=== PATIENT | male | born 1965 | race African-American/Black ===

== ENCOUNTER 2020-12-14 23:24 | Inpatient (IN) | payer OTHER, SELFPAY ==
--- NOTE | ~2020-12-14 | US_ITS ---
US abdomen complete EXAMINATION: US Abdomen Complete INDICATION: Cholecystitis. PROCEDURE: Realtime High Resolution abdomen ultrasound. COMPARISON: MRCP dated 12/15/2020 FINDINGS: Gallbladder contains sludge. No definite gallstones. Common bile duct measures 5 mm. Liver echotexture is diffusely heterogeneous with nodular surface, compatible with cirrhosis.. Pancre as is not well visualized due to bowel gas. Spleen is unremarkeable. Renal echotexture is within norm al limits bilaterally without hydronephrosis, contour deforming mass or renal stone. Right kidney ivy sures 10.9 cm. Left kidney measures 11.9 cm. Visualized aspects of the aorta and IVC are within normal limits. Portal vein is patent. No sonograph ic Roque's sign indicated by the technologist. Right pleural effusion. IMPRESSION: 1: Gallbladder sludge. 2: Cirrhosis of the liver. 3: Right pleural effusion. Reviewed, dictated and finalized at location A.
--- NOTE | ~2020-12-14 | MR_ITS ---
EXAMINATION: MR MRCP wo/w con/w 3D wo ind DATE: 12/15/2020 13:21 INDICATION: Acute pancreatitis. Abnormal liver function tests. Right upper quadrant abdominal pain. N ausea and vomiting. TECHNIQUE: Magnetic resonance imaging (MRI) of the abdomen was performed without and with 20 mL Multi Pratik intravenous contrast. Sequences included coronal T2-weighted FS FSE, coronal T2-weighted FSE, a xial T1-weighted LAVA, coronal FS FIESTA, axial dual-echo T1-weighted SPGR, coronal lava-FLEX, sagitt al T2-weighted FSE, axial T2-weighted FSE, and axial DWI. Thick-slab T2-weighted FSE images were obta ined for magnetic resonance cholangiopancreatography (MRCP). Maximum intensity projection 3-D reconst ructions of the volumetric data were created by the technologist. Postcontrast sequences included cor onal LAVA-flex and time course of axial T1-weighted LAVA. COMPARISON: None. FINDINGS: ABDOMEN MRI: There are small pleural effusions, right worse than left. There are mild dependent airsp marlo opacities bilaterally, likely atelectasis. Partially visualized is right-sided gynecomastia. The liver is small with nodular surface contour, consistent with cirrhosis. There is sludge and at least one stone in the gallbladder, which is distended. There is mild splenomegaly. Paraesophageal varices are noted. There is a paraumbilical portacaval shunt. There is edema of the intra-abdominal fat inclu ding around the pancreas. The pancreas enhances throughout. The adrenal glands are normal. There are cysts in the kidneys measuring up to 7 mm on the right. There are no dilated loops of bowel. There is a small volume of ascites. There is mild periportal and aortocaval lymphadenopathy, likely reactive. ABDOMEN MRCP: The common duct is normal and measures 5 mm. No choledocholithiasis. IMPRESSION: 1. Cirrhosis of the liver with portal venous hypertension. 2. Small pleural effusions, right worse than left. 3. Distended gallbladder with stone and sludge. Gallbladder distention may be secondary to fasting or acute cholecystitis. 4. Normal common duct. No choledocholithiasis. 5. Small volume of ascites. 6. Edema of the intra-abdominal fat including around the pancreas. These findings may be secondary to generalized edema and/or acute interstitial pancreatitis. Correlate with lipase. 7. Mild abdominal lymphadenopathy, likely reactive. Reviewed, dictated and finalized at location A. IMPRESSION: 1. Cirrhosis of the liver with portal venous hypertension. 2. Small pleural effusions, right worse than left. 3. Distended gallbladder with stone and sludge. Gallbladder distention may be s econdary to fasting or acute cholecystitis. 4. Normal common duct. No choledocholithiasis. 5. Small volume of ascites. 6. Edema of the intra-abdominal fat including around the pancreas. These findin gs may be secondary to generalized edema and/or acute interstitial pancreatitis . Correlate with lipase. 7. Mild abdominal lymphadenopathy, likely reactive.
--- NOTE | ~2020-12-14 | XR_ITS ---
EXAMINATION: XR chest 2V DATE: 12/15/2020 13:24 INDICATION: Pleural effusion. TECHNIQUE: Frontal and lateral views of the chest were obtained. COMPARISON: MRCP 12/15/2020 FINDINGS: There is a diffuse interstitial pattern in the lungs, consistent with mild pulmonary edema. There are small pleural effusions. No pneumothorax. The heart size is normal. IMPRESSION: 1. Mild pulmonary edema. 2. Small pleural effusions. Reviewed, dictated and finalized at location A.
--- NOTE | 2020-12-14 22:32 | ADMGEN ---
This patient, Peter Roy, was admitted to Medical Room 348-. Patient/family oriented to hospital policies and general routines including ID bracelet, bed and alarms, visiting hours, pain management, procedures, bathroom and other care routines, personal items, smoking policy, room service/diet, and visiting hours. Information on how to activate the Rapid Response Team has been discussed. Patient/Family are encouraged to report perceived risks to care and to ask questions if they do not understand what they are told or what they should do.
[2020-12-14 22:52] VITALS: BP 134/68; PULSE 107; RESP 18; TEMP 37.1; O2SAT 96; BMI 33.7
[2020-12-14 23:00] LABS: Glucose Point of Care 146 mg/dl (65-105)
[2020-12-15] MEDS: DEXTROSE 5%/LACTATED RINGERS 1,000 ML 100 ML IV CONT (04:49)
[2020-12-15 05:24] VITALS: BP 108/60; PULSE 94; RESP 18; TEMP 36.4; O2SAT 95
[2020-12-15 05:56] LABS: Add Urine Microscopic? YES; Appearance Urine Clear (Clear); Bacteria Urine Trace /hpf; Bilirubin Urine 1+ (Negative); Blood Urine 1+ (Negative); Color Urine Amber (Yellow); Glucose Urine UA Negative (Negative); Ketones Urine Negative (Negative); Leukocyte Esterase Ur Negative LEU/UL (Negative); Nitrate Urine Negative (Negative); Protein Urine Negative (Negative); WBC Urine 0-3 /hpf
--- NOTE | 2020-12-15 06:35 | PM.IMHP ---
H&P: HPI History of Present Illness Date/Time: 12/15/20 06:35 Chief Complaint: ABDOMINAL PAIN Narrative: THIS IS A 55-YEAR-OLD MALE WITH PAST MEDICAL HISTORY SIGNIFICANT FOR HYPERTENSION, TYPE 2 DIABETES MELLITUS, GOUT COUGH. PATIENT PRESENTS A DIRECT ADMIT FROM OUTSIDE HOSPITAL DUE TO ABDOMINAL PAIN NAUSEA AND VOMITING. CT OF ABDOMEN AND PELVIS SHOWED COLI CYSTITIS AND GALLSTONE PANCREATITIS. PATIENT HAS BEEN TRANSFERRED TO OUR FACILITY FOR FURTHER MANAGEMENT AND TREATMENT. AT THE TIME OF MY VISIT PATIENT WAS IN BED HE DENIED ANY DISCOMFORT HE DENIES ANY FEVERS, RIGORS ,CHILLS ,HE HAD SOME NAUSEA ,VOMITING ,ABDOMINAL PAIN LOCALIZED TO THE RIGHT UPPER QUADRANT HE HAS NOT BEEN ABLE TO EAT ANYTHING FOR THE LAST COUPLE OF DAYS. Review of Systems Review of Systems: NAUSEA VOMITING RIGHT UPPER QUADRANT PAIN Constitutional: Constitutional: Denies chills, Denies fatigue and Denies fever(s) Eyes: Eyes: Denies change in vision ENT: Denies dysphagia, Denies nasal discharge, Denies nasal obstruction and Denies odynophagia Cardiovascular: Cardiovascular: Denies chest pain, Denies irregular heart rhythm, Denies claudication, Denies radiating jaw, neck or arm pain, Denies palpitations and Denies orthopnea Respiratory: Respiratory: Denies cough Gastrointestinal: Gastrointestinal: Reports abdominal pain, Reports nausea and Reports vomiting Genitourinary: Genitourinary: Reports no additional male genitourinary complaints Musculoskeletal: Musculoskeletal: Reports no additional musculoskeletal complaints Integumentary/Breasts: Skin/Breast: Reports system reviewed and no additional complaints, except as docu Neurologic: Reports system reviewed and no additional complaints, except as documented Psychiatric: Psychiatric: Reports no additional psychiatric complaints Endocrine: Endocrine: Reports no additional endocrine complaints Hematologic/Lymphatic: Hematologic/Lymphatic: Reports no additional hematologic/lymphatic complaints Allergic/Immunologic: Allergic/Immunologic: Reports no additional allergic/immunologic complaints [facility] Family History Family History (Updated 12/15/20 @ 00:28 by Melinda Melo RN) Other Unknown family medical history Social History Social History Smoking status: Never smoker Alcohol intake: former Substance use: never Spiritual care concerns: No Meds Home Medications and Allergies Home Medications Medication Instructions Recorded Confirmed Type acetaminophen 325 mg PO PRN PRN 12/14/20 12/14/20 History allopurinol 100 mg PO DAILY 12/14/20 12/14/20 History aspirin 81 mg PO DAILY 12/14/20 12/14/20 History atorvastatin 40 mg PO HS 12/14/20 12/14/20 History duloxetine 30 mg PO DAILY 12/14/20 12/14/20 History hydrochlorothiazide 25 mg PO DAILY 12/14/20 12/14/20 History isosorbide mononitrate 60 mg PO DAILY 12/14/20 12/14/20 History losartan 25 mg PO DAILY 12/14/20 12/14/20 History metformin 1,000 mg PO DAILY 12/14/20 12/14/20 History metoprolol succinate 50 mg PO DAILY 12/14/20 12/14/20 History omeprazole 20 mg PO DAILY 12/14/20 12/14/20 History ranolazine 500 mg PO Q12H 12/14/20 12/14/20 History Allergies Allergy/AdvReac Type Severity Reaction Status Date / Time No Known Allergies Allergy Verified 12/14/20 23:07 Vital Signs Vital Signs - 24 hr 12/14/20 22:52 12/15/20 05:24 Temperature 98.8 F 97.5 F L Pulse Rate 107 H 94 Respiratory Rate 18 18 Blood Pressure 134/68 108/60 Pulse Oximetry 96 95 Exam Narrative: LAYING IN BED Const: General: comfortable, no acute distress, well developed, alert and awake Nutritional Appearance: average body habitus Orientation/consciousness: patient oriented x3 HENMT: Head: normal to inspection, normocephalic and atraumatic Ears: hearing grossly normal bilaterally Face and sinus: normal facial exam Eyes: General: appearance normal, both eyes and all related structures Pupils: Equal, round and reactive pupils present EOM:
[2020-12-15 06:41] LABS: Basophils Absolute Auto 0.1 K/mm3 (0.0-0.1); Basophils Percent Auto 0.7 % (0.2-1.2); Eosinophils Absolute Auto 0.1 K/mm3 (0-0.3); Eosinophils Percent Auto 1.4 % (0-4.4); Hematocrit 30.8 % (42.0-52.0); Hemoglobin 11.1 g/dL (14.0-18.0); Immature Granulocyte Absolute 0.12 K/mm3 (0.00-0.031); Immature Granulocyte Percent A 1.2 % (0-0.5); Lymphocytes Absolute Auto 1.68 K/mm3 (0.9-3.2); Lymphocytes Percent Auto 16.5 % (18.3-44.2); Mean Corpuscular Hemoglobin 34.9 pg (26-34); Mean Corpuscular Volume 96.9 fl (80-100); Mean Platelet Volume 12.8 fl (7.4-10.4); Monocytes Absolute Auto 2.4 K/mm3 (0.1-0.6); Monocytes Percent Auto 23.7 % (2.6-8.5); Neutrophils Absolute Auto 5.8 K/mm3 (1.3-6.7); Neutrophils Percent Auto 56.5 % (45.5-73.1); Nucleated Red Blood Cells Perc 0.3 % (0.0-0.2); Platelet Count Result 76 k/mm3 (150-375); Red Blood Count 3.18 M/mm3 (4.6-6.20); Red Cell Distribution Width 16.2 % (11.5-14.5); White Blood Count 10.2 K/mm3 (4.5-10.0)
[2020-12-15 06:52] LABS: Partial Thromboplastin Time 35.4 SECONDS (22.3-36.8)
[2020-12-15 06:54] LABS: Cholesterol 78 mg/dL (0-200); HDL Direct 11 mg/dL; Triglycerides 117 mg/dL (<150)
[2020-12-15 06:58] LABS: Specific Grav Ur 1.042 (1.001-1.035)
[2020-12-15 06:59] LABS: Lactic Acid Reflex 1.7 mmol/L (0.7-2.1)
[2020-12-15 08:10] VITALS: BP 132/70
[2020-12-15 08:34] LABS: Estimated CRCL calculation 105 ml/min; Estimated Glomerular Filt Rate > 60
[2020-12-15] MEDS: ONDANSETRON INJ 4 MG/2 ML VIAL IV PUSH (08:49)
[2020-12-15] MEDS: MORPHINE SULFATE (*CRX) 2 MG/ML INJ IV PUSH ×3 (08:49→20:51)
[2020-12-15 09:24] LABS: LDL Cholesterol Direct < 30 mg/dL
[2020-12-15 09:29] LABS: Glucose Point of Care 128 mg/dl (65-105)
[2020-12-15 09:58] VITALS: PULSE 88
[2020-12-15] MEDS: RANOLAZINE 500 MG TAB.ER.12H PO ×2 (09:58→20:50)
[2020-12-15] MEDS: hydroCHLOROthiazide 25 MG TABLET PO (09:58)
[2020-12-15] MEDS: DULoxetine HCL 30 MG CAPSULE.DR PO (09:58)
[2020-12-15] MEDS: ASPIRIN 81 MG ENTERIC TABLET PO (09:58)
[2020-12-15] MEDS: allopurinoL 100 MG TABLET PO (09:58)
[2020-12-15] MEDS: LOSARTAN POTASSIUM 25 MG TABLET PO (09:58)
[2020-12-15] MEDS: PANTOPRAZOLE 40 MG TABLET PO (09:58)
[2020-12-15] MEDS: ISOSORBIDE MONONITRATE 60 MG TAB.ER.24H PO (09:58)
[2020-12-15] MEDS: METOPROLOL SUCCINATE EXT REL 50 MG TABCR PO (09:58)
--- NOTE | 2020-12-15 10:32 | PM.CNGS ---
Assessment and Plan Assessment and plan (1) Cholelithiasis: Code(s): K80.20 - Calculus of gallbladder without cholecystitis without obstruction Status: Acute Assessment and Plan: I have reviewed the documentation from [facility]. He has evidence of cirrhosis and coupled with low platelets, elevated INR, and elevated bilirubin, he would be a very high risk surgical candidate. I discussed with him that there would be extremely high risks of bleeding complications with any surgical procedure. He does have evidence of cholelithiasis, but I am not sure this is the cause of his current symptoms. He may have decompensation of cirrhosis and worsening liver failure. Will await evaluation by a Gastroenterology. He may need further imaging with ultrasound, MRCP, or possible eventual ERCP. If he does eventually need surgical intervention, he would be best treated at a tertiary level facility that can handle advanced cirrhotic complications and potential massive bleeding. (2) Pancreatitis: Code(s): K85.90 - Acute pancreatitis without necrosis or infection, unspecified Status: Acute (3) Thrombocytopenia: Code(s): D69.6 - Thrombocytopenia, unspecified Status: Acute (4) Cirrhosis: Code(s): K74.60 - Unspecified cirrhosis of liver Status: Acute History of Present Illness Consult details Consult date: 12/15/20 Reason for consult: other ( cholelithiasis, pancreatitis) Requesting physician: Vilal Dickson MD Narrative: this is a 55-year-old man who presents to [facility] as a transfer from [facility]. I have reviewed the chart, but was not involved in the transfer decision process. The is a prisoner in the [place] [facility] and was brought to the emergency department for abdominal pain. He states that he has been having pain for about the last 5 days. He also noted his skin slightly yellow and the whites of his eyes slightly yellow. He states that he had seen a specialist before for possible hepatitis but was told that he did not have hepatitis. He did not know he had cirrhosis until the workup in the emergency department overnight. A CT in the emergency department in [place] showed evidence of pancreatitis and cholelithiasis. He reportedly has a history of alcohol dependence. Review of Systems Review of Systems: All systems reviewed & are unremarkable except as noted in HPI and below Constitutional: Constitutional: Reports as per HPI Eyes: Eyes: Denies change in vision ENT: Denies hearing loss, Denies neck pain and Denies sore throat Cardiovascular: Cardiovascular: Denies chest pain and Denies dyspnea Respiratory: Respiratory: Denies cough, Denies dyspnea and Denies wheezing Genitourinary: Genitourinary: Denies hematuria and Denies dysuria Musculoskeletal: Musculoskeletal: Denies arthralgias, Denies joint swelling and Denies neck pain Allergic/Immunologic: Allergic/Immunologic: Denies wheezing [facility] Past Medical History Medical History (Updated 12/15/20 @ 10:39 by Mack Guevara DO) Gout Hypertension Type 2 diabetes mellitus Family History Family History (Updated 12/15/20 @ 00:28 by Melinda Melo RN) Other Unknown family medical history Social History Social History Smoking status: Never smoker Alcohol intake: former Substance use: never Spiritual care concerns: No Meds Home Medications and Allergies Home Medications Medication Instructions Recorded Confirmed Type acetaminophen 325 mg PO PRN PRN 12/14/20 12/14/20 History allopurinol 100 mg PO DAILY 12/14/20 12/14/20 History aspirin 81 mg PO DAILY 12/14/20 12/14/20 History atorvastatin 40 mg PO HS 12/14/20 12/14/20 History duloxetine 30 mg PO DAILY 12/14/20 12/14/20 History hydrochlorothiazide 25 mg PO DAILY 12/14/20 12/14/20 History isosorbide mononitrate 60 mg PO DAILY 12/14/20 12/14/20 History losartan 25 mg PO DAILY 12/14/20 12/14/20 History m
--- NOTE | 2020-12-15 11:44 | WPDGICN ---
Assessment and Plan Assessment and plan (1) Decompensated hepatic cirrhosis: Code(s): K72.90 - Hepatic failure, unspecified without coma; K74.60 - Unspecified cirrhosis of liver Status: Acute Assessment and Plan: here with elevated bilirubin, prolonged INR consistent with cirrhosis, high MELD score 24 will check hepatitis panel and hiv, he says that used to drink but not heavily however he is vague with history and currently is in [facility] (2) Pancreatitis: Code(s): K85.90 - Acute pancreatitis without necrosis or infection, unspecified Status: Acute Assessment and Plan: possible pancreatitis, will get MRCP to assess biliary system and check if bile duct stone, stricture, mass, etc elevated liver enzymes also could be from decompensated liver disease (3) Nausea and vomiting: Code(s): R11.2 - Nausea with vomiting, unspecified Status: Acute Assessment and Plan: liquid diet for now based on clinical course probably may need egd to assess if portal hypertensive changes, varices, PUD, etc (4) Cholelithiasis: Code(s): K80.20 - Calculus of gallbladder without cholecystitis without obstruction Status: Acute Assessment and Plan: agree with surgery recommendations, he will be high risk for surgery (5) Upper abdominal pain: Code(s): R10.10 - Upper abdominal pain, unspecified Status: Acute (6) Thrombocytopenia: Code(s): D69.6 - Thrombocytopenia, unspecified Status: Acute Assessment and Plan: most likely from cirrhosis (7) Hypertension: Code(s): I10 - Essential (primary) hypertension Status: Acute (8) Type 2 diabetes mellitus: Code(s): E11.9 - Type 2 diabetes mellitus without complications Status: Inactive (9) Pleural effusion associated with hepatic disorder: Code(s): K76.9 - Liver disease, unspecified; J91.8 - Pleural effusion in other conditions classified elsewhere Status: Acute Assessment and Plan: Rt pleural effusion noted at outside CT scan, 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 He started with vague upper abdominal pain 5 days ago with poor appetite and nausea and vomiting, he was taken to ER at [facility] and noted to have elevated liver enzymes, reviewed blood work that showed bili 8.7, ast 114, alt 41, creat 1.4, albumin 2.1, na 135, lipase 546, lactic acid 4, inr 1.8. CT scan a/p in [place] reviewed and showed evidence of pancreatitis and cholelithiasis, also parenchymal liver disease, diverticulosis and large right pleural effusion. Platelets 70k here. I was called by ER physician to transer this patient since they do not have GI coverage this weekend. Denies dark stools, no fever. Had colonoscopy 2019 and told to come back in 5 years Review of Systems Constitutional: Constitutional: Denies chills Eyes: Eyes: Denies blurry vision ENT: Reports Normal hearing present Cardiovascular: Cardiovascular: Denies chest pain Respiratory: Respiratory: Denies dyspnea Gastrointestinal: Gastrointestinal: Reports abdominal pain, Reports nausea and Reports vomiting Genitourinary: Genitourinary: Denies dysuria Musculoskeletal: Musculoskeletal: Denies neck pain Integumentary/Breasts: Skin/Breast: Denies dry skin Neurologic: Denies confusion Psychiatric: Psychiatric: Reports no additional psychiatric complaints [facility] Past Medical History Medical History (Updated 12/15/20 @ 12:00 by Lorenzo Florence MD) Decompensated hepatic cirrhosis Gout Hypertension Pleural effusion associated with hepatic disorder Type 2 diabetes mellitus Upper abdominal pain
--- NOTE | 2020-12-15 12:57 | PM.IMPN ---
Progress Note: A&P Assessment and Plan (1) Acute gallstone pancreatitis: Code(s): K85.10 - Biliary acute pancreatitis without necrosis or infection Status: Acute Assessment and Plan: Patient is stable and afebrile. He is tolerated aclear liquid diet. GI and surgery consulted. Pain management with morphin PRN. (2) Cholelithiasis: Code(s): K80.20 - Calculus of gallbladder without cholecystitis without obstruction Status: Acute Assessment and Plan: Follow up MRCP (3) Nausea and vomiting: Code(s): R11.2 - Nausea with vomiting, unspecified Status: Acute Assessment and Plan: Continue supportive care Clear liquid diet Continue ondansetron PRN and pantoprazole. (4) Hypertension: Code(s): I10 - Essential (primary) hypertension Status: Acute Assessment and Plan: BP at goal at 132/70. Time Spent With Patient Time with patient: less than 15 minutes Subjective Date/time seen: 12/15/20 12:57 Patient is examined at the bedside. He is in moderate distress due to pain. No other complaints. Review of Systems Constitutional: Constitutional: Denies chills, Denies fatigue and Denies fever(s) Eyes: Eyes: Denies change in vision ENT: Denies dysphagia, Denies nasal discharge, Denies nasal obstruction and Denies odynophagia Cardiovascular: Cardiovascular: Denies chest pain, Denies irregular heart rhythm, Denies claudication, Denies radiating jaw, neck or arm pain, Denies palpitations and Denies orthopnea Respiratory: Respiratory: Denies cough Gastrointestinal: Gastrointestinal: Reports abdominal pain, Denies melena, Denies hematochezia, Denies dysphagia, Denies diarrhea, Reports nausea, Denies odynophagia, Reports vomiting and Denies hematemesis Genitourinary: Genitourinary: Reports no additional male genitourinary complaints Musculoskeletal: Musculoskeletal: Reports no additional musculoskeletal complaints Integumentary/Breasts: Skin/Breast: Reports system reviewed and no additional complaints, except as docu Neurologic: Reports system reviewed and no additional complaints, except as documented Psychiatric: Psychiatric: Reports no additional psychiatric complaints Endocrine: Endocrine: Reports no additional endocrine complaints, Denies fatigue and Denies palpitations Hematologic/Lymphatic: Hematologic/Lymphatic: Reports no additional hematologic/lymphatic complaints Allergic/Immunologic: Allergic/Immunologic: Reports no additional allergic/immunologic complaints Exam Narrative: LAYING IN BED Const: General: comfortable, no acute distress, well developed, alert and awake Nutritional Appearance: average body habitus Orientation/consciousness: patient oriented x3 HENMT: Head: normal to inspection, normocephalic and atraumatic Ears: hearing grossly normal bilaterally Face and sinus: normal facial exam Eyes: General: appearance normal, both eyes and all related structures Pupils: Equal, round and reactive pupils present EOM: EOMs intact bilaterally Neck: Neck: full ROM, no lymphadenopathy and no JVD Thyroid: thyroid normal Lymphatic: no lymphadenopathy noted Resp: Effort & Inspection: normal respiratory effort and able to speak in complete sentences Auscultation: clear to auscultation bilaterally Cardio: Jugular venous distension: no JVD Rate: regular rate Rhythm: regular rhythm Heart sounds: S1 normal heart sound present and S2 normal heart sound present GI: GI Palp: Yes Soft to palpation, Yes Tenderness to palpation present (GI) and No Guarding due to palpation present (GI) : General: Yes deferred Skin: Rashes: no rashes Wounds: no wounds Neuro: General: patient oriented x3 and CN's II-XI intact bilaterally Cranial nerves: Yes CN's II-XII intact bilaterally and Yes Equal, round and reactive pupils present Cognition (Neuro): normal cognition Speech: normal speech Gait exam (Neuro): Normal gait present Motor exam (neuro): 5/5 motor strengt
[2020-12-15 13:11] LABS: Hepatitis B Surface Antigen Negative (Negative)
[2020-12-15 13:17] LABS: HAV RESULT Negative (Negative); Hepatitis B Core IgM Result Negative (Negative)
[2020-12-15 13:44] LABS: Glucose Point of Care 114 mg/dl (65-105)
[2020-12-15 14:08] LABS: Hepatitis C Virus Antibody Reactive (Negative)
[2020-12-15 15:16] VITALS: BP 85/55; PULSE 76; RESP 14; TEMP 35.8; O2SAT 92
[2020-12-15 15:57] VITALS: BP 102/70
[2020-12-15 16:33] LABS: Glucose Point of Care 231 mg/dl (65-105)
[2020-12-15] MEDS: INSULIN ASPART (*BKC) 100 UNITS/ML SUB-Q (16:44)
[2020-12-15] MEDS: ATORVASTATIN 40 MG TABLET PO (20:50)
[2020-12-15] MEDS: INSULIN GLARGINE (*BKC) 100 UNITS/ML 10 UNITS SUB-Q (20:50)
[2020-12-15 21:00] LABS: Glucose Point of Care 167 mg/dl (65-105)
[2020-12-15 21:09] VITALS: BP 100/60; PULSE 71; RESP 18; TEMP 36.3; O2SAT 95
[2020-12-15 21:18] LABS: Anion Gap 7 mmol/L (8-16); Blood Urea Nitrogen 32 mg/dL (9-20); Carbon Dioxide 23 mmol/L (22-30); Chloride 106 mmol/L (98-107); Estimated CRCL calculation 85 ml/min; Estimated Glomerular Filt Rate > 60; Glucose 179 mg/dL (65-110); Potassium 4.1 mmol/L (3.4-5.0); Sodium 136 mmol/L (137-145)
[2020-12-16] MEDS: MORPHINE SULFATE (*CRX) 2 MG/ML INJ IV PUSH (04:15)
[2020-12-16 05:35] VITALS: BP 100/70; PULSE 74; RESP 16; TEMP 36.2; O2SAT 95
[2020-12-16 06:08] LABS: Basophils Absolute Auto 0.1 K/mm3 (0.0-0.1); Basophils Percent Auto 0.7 % (0.2-1.2); Eosinophils Absolute Auto 0.3 K/mm3 (0-0.3); Eosinophils Percent Auto 3.6 % (0-4.4); Hematocrit 31.2 % (42.0-52.0); Hemoglobin 11.1 g/dL (14.0-18.0); Immature Granulocyte Absolute 0.23 K/mm3 (0.00-0.031); Immature Granulocyte Percent A 2.7 % (0-0.5); Lymphocytes Absolute Auto 1.51 K/mm3 (0.9-3.2); Lymphocytes Percent Auto 17.7 % (18.3-44.2); Mean Corpuscular HGB Conc 35.6 g/dl (32-36); Mean Corpuscular Hemoglobin 34.4 pg (26-34); Mean Corpuscular Volume 96.6 fl (80-100); Mean Platelet Volume 12.6 fl (7.4-10.4); Monocytes Absolute Auto 2.3 K/mm3 (0.1-0.6); Monocytes Percent Auto 27.3 % (2.6-8.5); Neutrophils Absolute Auto 4.1 K/mm3 (1.3-6.7); Nucleated Red Blood Cells Perc 0.5 % (0.0-0.2); Platelet Count Result 81 k/mm3 (150-375); Red Blood Count 3.23 M/mm3 (4.6-6.20); Red Cell Distribution Width 16.8 % (11.5-14.5); White Blood Count 8.5 K/mm3 (4.5-10.0)
[2020-12-16 06:19] LABS: INR 1.6
[2020-12-16 06:25] LABS: Alanine Aminotransferase 33 U/L (4-50); Albumin Level 2.4 g/dL (3.5-5.1); Alkaline Phosphatase 101 U/L (38-126); Anion Gap 6 mmol/L (8-16); Aspartate Amino Transferase 75 U/L (17-59); Bilirubin,Total 5.5 mg/dL (0.2-1.3); Blood Urea Nitrogen 34 mg/dL (9-20); Carbon Dioxide 22 mmol/L (22-30); Chloride 104 mmol/L (98-107); Estimated CRCL calculation 67 ml/min; Estimated Glomerular Filt Rate > 60; Glucose 202 mg/dL (65-110); Potassium 4.1 mmol/L (3.4-5.0); Sodium 132 mmol/L (137-145)
[2020-12-16 07:14] LABS: HIV 1/2 Ab P24 Ag Result Negative (Negative)
[2020-12-16 08:21] LABS: Glucose Point of Care 181 mg/dl (65-105)
[2020-12-16] MEDS: PANTOPRAZOLE 40 MG TABLET PO (08:38)
[2020-12-16] MEDS: ASPIRIN 81 MG ENTERIC TABLET PO (08:38)
[2020-12-16] MEDS: DULoxetine HCL 30 MG CAPSULE.DR PO (08:38)
[2020-12-16] MEDS: allopurinoL 100 MG TABLET PO (08:38)
--- NOTE | 2020-12-16 10:32 | WPDGIPROGNO ---
Progress Note: A&P Assessment and Plan (1) Decompensated hepatic cirrhosis: Code(s): K72.90 - Hepatic failure, unspecified without coma; K74.60 - Unspecified cirrhosis of liver Status: Acute Assessment and Plan: HCV ab positive and most likely cause of cirrhosis MELD score 21 we will send a referral to hepatology at [facility] after he leaves the hospital MRCP reviewed, only small ascites not enough for paracentesis (2) Hepatitis C virus infection: Code(s): B19.20 - Unspecified viral hepatitis C without hepatic coma Status: Acute Assessment and Plan: will need follow-up with hepatology as outpatient HBV and HIV negative (3) Cholelithiasis: Code(s): K80.20 - Calculus of gallbladder without cholecystitis without obstruction Status: Acute Assessment and Plan: no need of surgery, high risk anyways because cirrhosis MRCP reviewed, normal bile duct, pancreas with some edema- could be from generalized edema but also from intersticial pancreatitis (4) Upper abdominal pain: Code(s): R10.10 - Upper abdominal pain, unspecified Status: Acute Assessment and Plan: we will plan to do EGD tomorrow to assess if pud, varices, portal hypertension, etc (5) Thrombocytopenia: Code(s): D69.6 - Thrombocytopenia, unspecified Status: Acute Assessment and Plan: from cirrhosis (6) Acute gallstone pancreatitis: Code(s): K85.10 - Biliary acute pancreatitis without necrosis or infection Status: Acute (7) Elevated liver enzymes: Code(s): R74.8 - Abnormal levels of other serum enzymes Status: Acute Subjective Date/time seen: 12/16/20 10:32 Interval history: still some abdominal pain but no vomiting Review of Systems Review of Systems: All systems reviewed & are unremarkable except as noted in HPI and below Exam Const: General: comfortable and no acute distress HENMT: General nose exam: Normal nares present Eyes: Pupils: Equal, round and reactive pupils present Neck: Neck: supple Resp: Auscultation: clear to auscultation bilaterally Cardio: Rate: regular rate GI: GI Palp: Yes Soft to palpation, Yes Tenderness to palpation present (GI) (mild ttp in epigastric, no rebound) and No Guarding due to palpation present (GI) Percussion: No Fluid wave present Auscultation: normal bowel sounds Skin: General skin exam: no rashes or lesions noted Neuro: Speech: normal speech Motor exam (neuro): Normal motor muscle tone present throughout Extrem: General: normal to inspection Psych: Mental Status: mental status grossly normal Objective Data Vital Signs Vital Signs: Vital Signs - 24 hr 12/15/20 15:16 12/15/20 15:57 12/15/20 21:09 Temperature 96.4 F L 97.3 F L Pulse Rate 76 71 Respiratory Rate 14 18 Blood Pressure 85/55 L 102/70 100/60 Pulse Oximetry 92 95 12/16/20 05:35 Temperature 97.2 F L Pulse Rate 74 Respiratory Rate 16 Blood Pressure 100/70 Pulse Oximetry 95 Intake/Output Intake/Output: Intake & Output 12/13/20 12/14/20 12/15/20 12/16/20 23:59 23:59 23:59 23:59 Intake Total 240 400 Output Total 550 Balance -310 400 Meds/Results Medications: Active Medications Generic Name Dose Route Start Last Admin Trade Name Freq PRN Reason Stop Dose Admin Acetaminophen 325 mg 12/15/20 02:35 Acetaminophen 325 Mg Tablet PO Q6H PRN fever or pain 1-3 Allopurinol 100 mg 12/15/20 08:00 12/16/20 08:38 Allopurinol 100 Mg Tablet PO 100 mg DAILY@0800 JESSICA Administration Aspirin 81 mg 12/15/20 09:00 12/16/20 08:38 Aspirin 81 Mg Enteric Tablet PO 81 mg QAM JESSICA Administration Atorvastatin Calcium 40 mg 12/15/20 21:00 12/15/20 20:50 Atorvastatin 40 Mg Tablet PO 40 mg HS JESSICA Administration Dextrose 12.5 gm 12/15/20 16:37 Dextrose 50% 25 Gm/50 Ml Syringe IV PUSH PRN PRN Hypoglycemia Protocol Duloxetine HCl 30 mg 12/15/20 09:00
[2020-12-16 11:41] LABS: Glucose Point of Care 178 mg/dl (65-105)
--- NOTE | 2020-12-16 14:02 | PM.IMPN ---
Progress Note: A&P Assessment and Plan (1) Acute gallstone pancreatitis: Code(s): K85.10 - Biliary acute pancreatitis without necrosis or infection Status: Acute Assessment and Plan: Patient is stable and afebrile. He is tolerated aclear liquid diet. GI and surgery consulted. Pain management with morphin PRN. 12/16/20 14:02 patient is a 55 year old male with history of liver cirrhosis acute hepatitis panel showed patient is positive for hepatitis C most likely cause of his liver cirrhosis, patient also has thrombocytopenia most likely secondary to liver cirrhosiss, patient remains clinically stable he denies any complaint abdominal pain nausea or vomiting, denies any bleeding or bruising, is seen by GI recommending hepatology consultation upon discharge. will continue to monitor (2) Cholelithiasis: Code(s): K80.20 - Calculus of gallbladder without cholecystitis without obstruction Status: Acute Assessment and Plan: Follow up MRCP (3) Nausea and vomiting: Code(s): R11.2 - Nausea with vomiting, unspecified Status: Acute Assessment and Plan: Continue supportive care Clear liquid diet Continue ondansetron PRN and pantoprazole. (4) Hypertension: Code(s): I10 - Essential (primary) hypertension Status: Acute Assessment and Plan: BP at goal at 132/70. Subjective Date/time seen: 12/16/20 14:02 patient is a 55 year old male with history of liver cirrhosis acute hepatitis panel showed patient is positive for hepatitis C most likely cause of his liver cirrhosis, patient also has thrombocytopenia most likely secondary to liver cirrhosiss, patient remains clinically stable he denies any complaint abdominal pain nausea or vomiting, denies any bleeding or bruising, is seen by GI recommending hepatology consultation upon discharge. will continue to monitor Review of Systems Review of Systems: All systems reviewed & are unremarkable except as noted in HPI and below Exam Narrative: Patient is comfortable, NAD HEENT: eyes are clear and none icteric LUNGS:CTA HEART: RR S1S2 ABD: BS+, Soft and nontender minimal ascites Lower extremities: no edema SKIN: nonjaundiced Neuro: grossly intact. Objective Data Vital Signs Vital Signs: Vital Signs - 24 hr 12/15/20 15:16 12/15/20 15:57 12/15/20 21:09 Temperature 96.4 F L 97.3 F L Pulse Rate 76 71 Respiratory Rate 14 18 Blood Pressure 85/55 L 102/70 100/60 Pulse Oximetry 92 95 12/16/20 05:35 Temperature 97.2 F L Pulse Rate 74 Respiratory Rate 16 Blood Pressure 100/70 Pulse Oximetry 95 Intake/Output Intake/Output: Intake & Output 12/13/20 12/14/20 12/15/20 12/16/20 23:59 23:59 23:59 23:59 Intake Total 240 580 Output Total 550 Balance -310 580 Meds/Results Medications: Active Medications Generic Name Dose Route Start Last Admin Trade Name Freq PRN Reason Stop Dose Admin Acetaminophen 325 mg 12/15/20 02:35 Acetaminophen 325 Mg Tablet PO Q6H PRN fever or pain 1-3 Allopurinol 100 mg 12/15/20 08:00 12/16/20 08:38 Allopurinol 100 Mg Tablet PO 100 mg DAILY@0800 JESSICA Administration Aspirin 81 mg 12/15/20 09:00 12/16/20 08:38 Aspirin 81 Mg Enteric Tablet PO 81 mg QAM JESSICA Administration Atorvastatin Calcium 40 mg 12/15/20 21:00 12/15/20 20:50 Atorvastatin 40 Mg Tablet PO 40 mg HS JESSICA Administration Dextrose 12.5 gm 12/15/20 16:37 Dextrose 50% 25 Gm/50 Ml Syringe IV PUSH PRN PRN Hypoglycemia Protocol Duloxetine HCl 30 mg 12/15/20 09:00 12/16/20 08:38 Duloxetine Hcl 30 Mg Capsule.Dr PO 30 mg DAILY JESSICA Administration Glucagon 1 mg 12/15/20 16:37 Glucagon For Inj 1 Mg Vial IM PRN PRN Hypoglycemia Protocol Glucose 15 gm 12/15/20 16:37 Glucose Oral Gel 15 Gm Of Glucse In 37.5 Gm Tube PO PRN PRN Hypoglycemia Protocol Hydrochlorothiazide 25 mg 12/15/20 09
[2020-12-16 15:35] VITALS: BP 98/60; PULSE 76; RESP 18; TEMP 37.3; O2SAT 92
[2020-12-16] MEDS: INSULIN ASPART (*BKC) 100 UNITS/ML SUB-Q (18:23)
[2020-12-16 18:25] LABS: Glucose Point of Care 235 mg/dl (65-105)
[2020-12-16] MEDS: ATORVASTATIN 40 MG TABLET PO (20:17)
[2020-12-16] MEDS: RANOLAZINE 500 MG TAB.ER.12H PO (20:17)
[2020-12-16] MEDS: INSULIN GLARGINE (*BKC) 100 UNITS/ML 10 UNITS SUB-Q (20:19)
[2020-12-16 20:25] LABS: Glucose Point of Care 182 mg/dl (65-105)
[2020-12-16 20:27] VITALS: BP 113/66; PULSE 78; RESP 18; TEMP 36.3; O2SAT 93
[2020-12-17] VITALS (8 sets, daily range): BP systolic 108–124; BP diastolic 61–89; PULSE 72–90; RESP 17–20; TEMP 36.6–36.8; O2SAT 92–98
[2020-12-17 06:04] LABS: Basophils Absolute Auto 0.1 K/mm3 (0.0-0.1); Basophils Percent Auto 0.7 % (0.2-1.2); Eosinophils Absolute Auto 0.2 K/mm3 (0-0.3); Eosinophils Percent Auto 2.3 % (0-4.4); Hematocrit 32.7 % (42.0-52.0); Hemoglobin 11.1 g/dL (14.0-18.0); Immature Granulocyte Absolute 0.22 K/mm3 (0.00-0.031); Immature Granulocyte Percent A 2.5 % (0-0.5); Lymphocytes Absolute Auto 2.05 K/mm3 (0.9-3.2); Lymphocytes Percent Auto 23.4 % (18.3-44.2); Mean Corpuscular HGB Conc 33.9 g/dl (32-36); Mean Corpuscular Hemoglobin 33.4 pg (26-34); Mean Corpuscular Volume 98.5 fl (80-100); Mean Platelet Volume 12.9 fl (7.4-10.4); Monocytes Absolute Auto 2.6 K/mm3 (0.1-0.6); Monocytes Percent Auto 29.7 % (2.6-8.5); Neutrophils Absolute Auto 3.6 K/mm3 (1.3-6.7); Neutrophils Percent Auto 41.4 % (45.5-73.1); Platelet Count Result 82 k/mm3 (150-375); Red Blood Count 3.32 M/mm3 (4.6-6.20); Red Cell Distribution Width 17.9 % (11.5-14.5); White Blood Count 8.8 K/mm3 (4.5-10.0)
[2020-12-17 06:45] LABS: Alanine Aminotransferase 34 U/L (4-50); Albumin Level 2.3 g/dL (3.5-5.1); Alkaline Phosphatase 88 U/L (38-126); Anion Gap 5 mmol/L (8-16); Aspartate Amino Transferase 106 U/L (17-59); Blood Urea Nitrogen 30 mg/dL (9-20); Calcium 7.6 mg/dL (8.4-10.2); Carbon Dioxide 20 mmol/L (22-30); Chloride 103 mmol/L (98-107); Estimated CRCL calculation 94 ml/min; Estimated Glomerular Filt Rate > 60; Glucose 151 mg/dL (65-110); Magnesium 2.3 mg/dL (1.6-2.3); Potassium 3.8 mmol/L (3.4-5.0); Sodium 128 mmol/L (137-145)
[2020-12-17 08:01] LABS: Glucose Point of Care 156 mg/dl (65-105)
[2020-12-17 12:03] LABS: Glucose Point of Care 135 mg/dl (65-105)
--- NOTE | 2020-12-17 12:13 | WPDANESEPPF ---
Anes - Initial Pre Proc Eval Procedure: Operation Date: 12/17/20 15:00 Proposed Procedures p Esophagogastroduodenoscopy - Lorenzo Florence MD Date/Time: 12/17/20 12:13 Surgeon: Villa Dickson MD Pre Op Diagnosis: Acute Pancreatitis Patient Data Age: 55 Gender: M Height: 1.75 m Weight: 103.5 kg Last Vital Signs Temp 36.6 C 12/17/20 05:23 Pulse 89 12/17/20 05:23 Resp 18 12/17/20 05:23 BP 120/63 12/17/20 05:23 Pulse Ox 92 12/17/20 05:23 Allergies Allergy/AdvReac Type Severity Reaction Status Date / Time No Known Allergies Allergy Verified 12/14/20 23:07 Home Medications Medication Instructions Recorded Confirmed Type acetaminophen 325 mg PO PRN PRN 12/14/20 12/14/20 History allopurinol 100 mg PO DAILY 12/14/20 12/14/20 History aspirin 81 mg PO DAILY 12/14/20 12/14/20 History atorvastatin 40 mg PO HS 12/14/20 12/14/20 History duloxetine 30 mg PO DAILY 12/14/20 12/14/20 History hydrochlorothiazide 25 mg PO DAILY 12/14/20 12/14/20 History isosorbide mononitrate 60 mg PO DAILY 12/14/20 12/14/20 History losartan 25 mg PO DAILY 12/14/20 12/14/20 History metformin 1,000 mg PO DAILY 12/14/20 12/14/20 History metoprolol succinate 50 mg PO DAILY 12/14/20 12/14/20 History omeprazole 20 mg PO DAILY 12/14/20 12/14/20 History ranolazine 500 mg PO Q12H 12/14/20 12/14/20 History Laboratory Tests 12/16/20 12/16/20 12/17/20 18:20 20:19 05:33 WBC 8.8 K/mm3 K/mm3 (4.5-10.0) RBC 3.32 M/mm3 L M/mm3 (4.6-6.20) Hgb 11.1 g/dL L g/dL (14.0-18.0) Hct 32.7 % L % (42.0-52.0) MCV 98.5 fl fl (80-100) MCH 33.4 pg pg (26-34) MCHC 33.9 g/dl g/dl (32-36) RDW 17.9 % H % (11.5-14.5) Plt Count 82 k/mm3 L k/mm3 (150-375) MPV 12.9 fl H fl (7.4-10.4) Immature Gran % (Auto) 2.5 % H % (0-0.5) Neut % (Auto) 41.4 % L % (45.5-73.1) Lymph % (Auto) 23.4 % % (18.3-44.2) [place] % (Auto) 29.7 % H % (2.6-8.5) Eos % (Auto) 2.3 % % (0-4.4) Baso % (Auto) 0.7 % % (0.2-1.2) Lymph # (Auto) 2.05 K/mm3 K/mm3 (0.9-3.2) [place] # (Auto) 2.6 K/mm3 H K/mm3 (0.1-0.6) Eos # (Auto) 0.2 K/mm3 K/mm3 (0-0.3) Baso # (Auto) 0.1 K/mm3 K/mm3 (0.0-0.1) Abs Immat Gran (auto) 0.22 K/mm3 H K/mm3 (0.00-0.031) Absolute Neuts (auto) 3.6 K/mm3 K/mm3 (1.3-6.7) Absolute Nucleated RBC 0.0 K/mm3 K/mm3 (0.0-0.012) Nucleated RBC % 0.0 % % (0.0-0.2) Sodium Potassium Chloride Carbon Dioxide Anion Gap BUN Creatinine Estim Creat Clear Calc Estimated GFR Glucose POC Capillary Glucose 235 mg/dl H mg/dl 182 mg/dl H mg/dl (65-105) (65-105) Calcium Magnesium Total Bilirubin AST ALT Alkaline Phosphatase Total Protein Albumin 12/17/20 12/17/20 12/17/20 05:33 07:58 12:00 WBC RBC Hgb Hct MCV MCH MCHC RDW Plt Count MPV Immature Gran % (Auto) Neut % (Auto) Lymph % (Auto) [place] % (Auto) Eos % (Auto) Baso % (Auto) Lymph # (Auto) [place] # (Auto) Eos # (Auto) Baso # (Auto) Abs Immat Gran (auto) Absolute Neuts (auto) Absolute Nucleated RBC Nucleated RBC % Sodium 128 mmol/L L mmol/L (137-145) Potassium 3.8 mmol/L mmol/L (3.4-5.0) Chloride 103 mmol/L mmol/L (98-107) Carbon Dioxide 20 mmol/L L mmol/L (22-30) Anion Gap 5
[2020-12-17 12:33] LABS: Glucose Point of Care 139 mg/dl (65-105)
[2020-12-17] MEDS: LACTATED RINGERS 1,000 ML 150 ML IV CONT (12:35)
[2020-12-17] MEDS: PANTOPRAZOLE 40 MG TABLET PO (15:09)
[2020-12-17] MEDS: hydroCHLOROthiazide 25 MG TABLET PO (15:09)
[2020-12-17] MEDS: ASPIRIN 81 MG ENTERIC TABLET PO (15:09)
--- NOTE | 2020-12-17 16:27 | PM.IMPN ---
Progress Note: A&P Assessment and Plan (1) Acute gallstone pancreatitis: Code(s): K85.10 - Biliary acute pancreatitis without necrosis or infection Status: Acute Assessment and Plan: Patient is stable and afebrile. He is tolerated aclear liquid diet. GI and surgery consulted. Pain management with morphin PRN. 12/16/20 14:02 patient is a 55 year old male with history of liver cirrhosis acute hepatitis panel showed patient is positive for hepatitis C most likely cause of his liver cirrhosis, patient also has thrombocytopenia most likely secondary to liver cirrhosiss, patient remains clinically stable he denies any complaint abdominal pain nausea or vomiting, denies any bleeding or bruising, is seen by GI recommending hepatology consultation upon discharge. will continue to monitor (2) Cholelithiasis: Code(s): K80.20 - Calculus of gallbladder without cholecystitis without obstruction Status: Acute Assessment and Plan: MRCP showing portal venous hypertension, possible pancreatitis, no choledocholithiasis, distended gallbladder, potentially consistent with cholecystitis. Will obtain lipase to correlate pancreas findings If abdominal pain not improving, and based on results of ultrasound, may need surgical intervention this admission GI on consult, appreciate recommendations (3) Hepatic cirrhosis: Code(s): K74.60 - Unspecified cirrhosis of liver Status: Acute Assessment and Plan: Seen on EGD 9-7. Along with mild portal hypertensive gastropathy and small esophageal varices. Most likely related to hepatitis C, RNA pending Establish hepatology care at [facility] upon discharge. GI on board, appreciate recommendations Subjective Date/time seen: 12/17/20 16:27 Resting comfortably in bed. Complains of some mild epigastric pain. Having bowel movements, tolerating diet. Review of Systems Review of Systems: All systems reviewed & are unremarkable except as noted in HPI and below Exam Const: General: no acute distress Neck: Neck: no JVD Cardio: Rate: regular rate Rhythm: regular rhythm GI: GI Palp: Yes Soft to palpation and Yes Tenderness to palpation present (GI) Other: Generalized tenderness to palpation over epigastrium Objective Data Vital Signs Vital Signs: Vital Signs - 24 hr 12/16/20 20:27 12/17/20 05:23 12/17/20 12:47 Temperature 97.3 F L 97.8 F 97.8 F Pulse Rate 78 89 90 Respiratory Rate 18 18 20 Blood Pressure 113/66 120/63 112/83 Pulse Oximetry 93 92 92 12/17/20 13:48 12/17/20 13:58 12/17/20 14:08 Temperature Pulse Rate 85 81 81 Respiratory Rate 20 20 20 Blood Pressure 111/89 113/72 124/77 Pulse Oximetry 94 97 98 12/17/20 15:02 Temperature 98.2 F Pulse Rate 84 Respiratory Rate 18 Blood Pressure 114/89 Pulse Oximetry 93 Intake/Output Intake/Output: Intake & Output 12/14/20 12/15/20 12/16/20 12/17/20 23:59 23:59 23:59 23:59 Intake Total 240 1360 250 Output Total 550 700 Balance -310 1360 -450 Meds/Results Medications: Active Medications Generic Name Dose Route Start Last Admin Trade Name Freq PRN Reason Stop Dose Admin Acetaminophen 325 mg 12/15/20 02:35 Acetaminophen 325 Mg Tablet PO Q6H PRN fever or pain 1-3 Allopurinol 100 mg 12/15/20 08:00 12/17/20 15:04 Allopurinol 100 Mg Tablet PO Not Given DAILY@0800 JESSICA Aspirin 81 mg 12/15/20 09:00 12/17/20 15:09 Aspirin 81 Mg Enteric Tablet PO 81 mg QAM JESSICA Administration Atorvastatin Calcium 40 mg 12/15/20 21:00 12/16/20 20:17 Atorvastatin 40 Mg Tablet PO 40 mg HS JESSICA Administration Dextrose 12.5 gm 12/15/20 16:37 Dextrose 50% 25 Gm/50 Ml Syringe IV PUSH PRN PRN Hypoglycemia Protocol Duloxetine HCl 30 mg 12/15/20 09:00 12/17/20 15:04 Duloxetine Hcl 30 Mg Capsule.Dr PO Not Given DAILY JESSICA Glucagon 1 mg 12/15/20 16:37 Glucagon For Inj 1 Mg Vial IM PRN PRN Hypoglycemia Prot
[2020-12-17 18:04] LABS: Glucose Point of Care 116 mg/dl (65-105)
[2020-12-17] MEDS: ACETAMINOPHEN 325 MG TABLET PO (18:07)
[2020-12-17 18:54] LABS: Lipase 314 U/L (23-300)
[2020-12-17] MEDS: RANOLAZINE 500 MG TAB.ER.12H PO (20:14)
[2020-12-17] MEDS: INSULIN GLARGINE (*BKC) 100 UNITS/ML 10 UNITS SUB-Q (20:14)
[2020-12-17] MEDS: PROPRANOLOL HCL 20 MG TABLET PO (20:14)
[2020-12-17] MEDS: ATORVASTATIN 40 MG TABLET PO (20:14)
[2020-12-17 21:00] LABS: Glucose Point of Care 140 mg/dl (65-105)
[2020-12-18 04:38] VITALS: BP 128/80; PULSE 77; RESP 16; TEMP 36.2; O2SAT 92
[2020-12-18 06:16] LABS: Basophils Percent Auto 0.4 % (0.2-1.2); Eosinophils Absolute Auto 0.3 K/mm3 (0-0.3); Eosinophils Percent Auto 2.9 % (0-4.4); Hematocrit 33.8 % (42.0-52.0); Hemoglobin 12.3 g/dL (14.0-18.0); Immature Granulocyte Absolute 0.17 K/mm3 (0.00-0.031); Immature Granulocyte Percent A 1.6 % (0-0.5); Lymphocytes Absolute Auto 2.12 K/mm3 (0.9-3.2); Lymphocytes Percent Auto 19.4 % (18.3-44.2); Mean Corpuscular HGB Conc 36.4 g/dl (32-36); Mean Corpuscular Hemoglobin 34.6 pg (26-34); Mean Corpuscular Volume 95.2 fl (80-100); Mean Platelet Volume 12.4 fl (7.4-10.4); Monocytes Absolute Auto 2.7 K/mm3 (0.1-0.6); Monocytes Percent Auto 24.9 % (2.6-8.5); Neutrophils Absolute Auto 5.6 K/mm3 (1.3-6.7); Neutrophils Percent Auto 50.8 % (45.5-73.1); Platelet Count Result 96 k/mm3 (150-375); Red Blood Count 3.55 M/mm3 (4.6-6.20); Red Cell Distribution Width 17.1 % (11.5-14.5); White Blood Count 10.9 K/mm3 (4.5-10.0)
[2020-12-18 06:52] LABS: Alanine Aminotransferase 38 U/L (4-50); Albumin Level 2.5 g/dL (3.5-5.1); Alkaline Phosphatase 103 U/L (38-126); Anion Gap 5 mmol/L (8-16); Aspartate Amino Transferase 116 U/L (17-59); Bilirubin,Total 5.2 mg/dL (0.2-1.3); Blood Urea Nitrogen 23 mg/dL (9-20); Carbon Dioxide 23 mmol/L (22-30); Chloride 101 mmol/L (98-107); Estimated CRCL calculation 105 ml/min; Estimated Glomerular Filt Rate > 60; Glucose 122 mg/dL (65-110); Magnesium 2.2 mg/dL (1.6-2.3); Phosphorus 3.1 mg/dL (2.5-4.5); Potassium 3.4 mmol/L (3.4-5.0); Sodium 129 mmol/L (137-145)
[2020-12-18 07:24] LABS: Atypical Lymphocytes Present; Large Platelets Present
[2020-12-18 08:00] VITALS: O2SAT 93
--- NOTE | 2020-12-18 08:57 | WPDANESPN ---
Anes - Prog Note Post-Op Date/Time: 12/18/20 08:57 Cardiovascular status: normal Respiratory status: normal Airway patency: baseline Mental status: baseline Post-Op hydration status: normal Vital Signs: Last Vital Signs Temp 97.2 F L 12/18/20 04:38 Pulse 77 12/18/20 04:38 Resp 16 12/18/20 04:38 BP 128/80 12/18/20 04:38 Pulse Ox 93 12/18/20 08:00 Pain Score (VAS): 0 I/O: Intake & Output 12/17/20 12/18/20 12/18/20 23:59 07:59 15:59 Intake Total 480 550 Balance 480 550 Laboratory Tests 12/18/20 06:04 12/18/20 06:04 12/17/20 12/17/20 12/17/20 12:00 12:30 18:02 WBC RBC Hgb Hct MCV MCH MCHC RDW Plt Count MPV Immature Gran % (Auto) Neut % (Auto) Lymph % (Auto) [place] % (Auto) Eos % (Auto) Baso % (Auto) Lymph # (Auto) [place] # (Auto) Eos # (Auto) Baso # (Auto) Abs Immat Gran (auto) Absolute Neuts (auto) Absolute Nucleated RBC Nucleated RBC % Atypical Lymphocytes Platelet Estimate Large Platelets Sodium Potassium Chloride Carbon Dioxide Anion Gap BUN Creatinine Estim Creat Clear Calc Estimated GFR Glucose POC Capillary Glucose 135 H 139 H 116 H Calcium Phosphorus Magnesium Total Bilirubin AST ALT Alkaline Phosphatase Total Protein Albumin Lipase 12/17/20 12/17/20 12/18/20 18:20 20:14 06:04 WBC 10.9 H RBC 3.55 L Hgb 12.3 L Hct 33.8 L MCV 95.2 MCH 34.6 H MCHC 36.4 H RDW 17.1 H Plt Count 96 L MPV 12.4 H Immature Gran % (Auto) 1.6 H Neut % (Auto) 50.8 Lymph % (Auto) 19.4 [place] % (Auto) 24.9 H Eos % (Auto) 2.9 Baso % (Auto) 0.4 Lymph # (Auto) 2.12 [place] # (Auto) 2.7 H Eos # (Auto) 0.3 Baso # (Auto) 0.0 Abs Immat Gran (auto) 0.17 H Absolute Neuts (auto) 5.6 Absolute Nucleated RBC 0.0 Nucleated RBC % 0.0 Atypical Lymphocytes Present Platelet Estimate Slightly decreased Large Platelets Present Sodium Potassium Chloride Carbon Dioxide Anion Gap BUN Creatinine Estim Creat Clear Calc Estimated GFR Glucose POC Capillary Glucose 140 H Calcium Phosphorus Magnesium Total Bilirubin AST ALT Alkaline Phosphatase Total Protein Albumin Lipase 314 H 12/18/20 06:04 WBC RBC Hgb Hct MCV MCH MCHC RDW Plt Count MPV Immature Gran % (Auto) Neut % (Auto) Lymph % (Auto) [place] % (Auto) Eos % (Auto) Baso % (Auto) Lymph # (Auto) [place] # (Auto) Eos # (Auto) Baso # (Auto) Abs Immat Gran (auto) Absolute Neuts (auto) Absolute Nucleated RBC Nucleated RBC % Atypical Lymphocytes Platelet Estimate Large Platelets Sodium 129 L Potassium 3.4 Chloride 101 Carbon Dioxide 23 Anion Gap 5 L BUN 23 H Creatinine 0.80 Estim Creat Clear Calc 105 Estimated GFR > 60 Glucose 122 H POC Capillary Glucose Calcium 8.0 L Phosphorus 3.1 Magnesium 2.2 Total Bilirubin 5.2 H AST 116 H ALT 38 Alkaline Phosphatase 103 Total Protein 7.0 Albumin 2.5 L Lipase Post-procedural complaints: none Patient Feedback: Patient satisfied with anesthetic care.
[2020-12-18 09:15] VITALS: PULSE 67
[2020-12-18] MEDS: ISOSORBIDE MONONITRATE 60 MG TAB.ER.24H PO (09:15)
[2020-12-18] MEDS: DULoxetine HCL 30 MG CAPSULE.DR PO (09:15)
[2020-12-18] MEDS: RANOLAZINE 500 MG TAB.ER.12H PO (09:15)
[2020-12-18] MEDS: allopurinoL 100 MG TABLET PO (09:15)
[2020-12-18] MEDS: PROPRANOLOL HCL 20 MG TABLET PO (09:15)
[2020-12-18] MEDS: LOSARTAN POTASSIUM 25 MG TABLET PO (09:15)
[2020-12-18] MEDS: ASPIRIN 81 MG ENTERIC TABLET PO (09:18)
[2020-12-18 11:48] LABS: Glucose Point of Care 121 mg/dl (65-105)
--- NOTE | 2020-12-18 13:31 | PM.IMPN ---
Progress Note: A&P Assessment and Plan (1) Biliary sludge: Code(s): K83.8 - Other specified diseases of biliary tract Status: Acute Assessment and Plan: biliary sludge identified on MRCP on December 15, and also on abdominal ultrasound on December 17. Some gallbladder distention, however unclear if related to fasting or acute cholecystitis. Patient does not have typical cholecystitis signs, including abdominal pain mild, epigastric, and not related to food. Will obtain surgical evaluation, to see if he would benefit from intervention, or if pain is more likely related to gastritis (2) Hepatic cirrhosis: Code(s): K74.60 - Unspecified cirrhosis of liver Status: Acute Assessment and Plan: Seen on EGD 9-. Along with mild portal hypertensive gastropathy and small esophageal varices. Most likely related to hepatitis C, RNA pending Establish hepatology care at [facility] upon discharge. b.i.d. propranolol as ordered GI on board, appreciate recommendations (3) Gastritis: Code(s): K29.70 - Gastritis, unspecified, without bleeding Status: Acute Assessment and Plan: seen on EGD yesterday, mild gastritis with erythematous changes, portal hypertensive changes. No mucosal bleeding Time Spent With Patient Time with patient: less than 15 minutes Subjective Date/time seen: 12/18/20 13:31 Some mild epigastric abdominal pain, but otherwise no acute complaints. Denies nausea vomiting, constipation diarrhea, fevers chills, shortness of breath or chest pain. Review of Systems Review of Systems: All systems reviewed & are unremarkable except as noted in HPI and below Exam Const: General: no acute distress Neck: Neck: no JVD Resp: Effort & Inspection: normal respiratory effort Auscultation: clear to auscultation bilaterally Cardio: Rate: regular rate Rhythm: regular rhythm GI: GI Palp: Yes Soft to palpation and Yes Tenderness to palpation present (GI) Other: Mild pain on palpation of epigastric region Bowel sounds audible No rigidity, or scars. Objective Data Vital Signs Vital Signs: Vital Signs - 24 hr 12/17/20 13:48 12/17/20 13:58 12/17/20 14:08 Temperature Pulse Rate 85 81 81 Respiratory Rate 20 20 20 Blood Pressure 111/89 113/72 124/77 Pulse Oximetry 94 97 98 12/17/20 15:02 12/17/20 20:00 12/17/20 20:18 Temperature 98.2 F 97.9 F Pulse Rate 84 72 72 Respiratory Rate 18 17 17 Blood Pressure 114/89 108/61 Pulse Oximetry 93 95 95 12/18/20 04:38 12/18/20 08:00 12/18/20 09:15 Temperature 97.2 F L Pulse Rate 77 67 Respiratory Rate 16 Blood Pressure 128/80 Pulse Oximetry 92 93 Intake/Output Intake/Output: Intake & Output 12/15/20 12/16/20 12/17/20 12/18/20 23:59 23:59 23:59 23:59 Intake Total 240 1360 730 790 Output Total 550 700 Balance -310 1360 30 790 Meds/Results Medications: Active Medications Generic Name Dose Route Start Last Admin Trade Name Freq PRN Reason Stop Dose Admin Acetaminophen 325 mg 12/15/20 02:35 12/17/20 18:07 Acetaminophen 325 Mg Tablet PO 325 mg Q6H PRN Administration fever or pain 1-3 Allopurinol 100 mg 12/15/20 08:00 12/18/20 09:15 Allopurinol 100 Mg Tablet PO 100 mg DAILY@0800 JESSICA Administration Aspirin 81 mg 12/15/20 09:00 12/18/20 09:18 Aspirin 81 Mg Enteric Tablet PO 81 mg QAM JESSICA Administration Atorvastatin Calcium 40 mg 12/15/20 21:00 12/17/20 20:14 Atorvastatin 40 Mg Tablet PO 40 mg HS JESSICA Administration Dextrose 12.5 gm 12/15/20 16:37 Dextrose 50% 25 Gm/50 Ml Syringe IV PUSH PRN PRN Hypoglycemia Protocol Duloxetine HCl 30 mg 12/15/20 09:00 12/18/20 09:15 Duloxetine Hcl 30 Mg Capsule.Dr PO 30 mg DAILY JESSICA Administration Glucagon 1 mg 12/15/20 16:37 Glucagon For Inj 1 Mg Vial IM PRN PRN Hypoglycemia Protocol Glucose 15 gm 12/15/20 16:37 Glucose Oral Gel 15 Gm Of Gluc
--- NOTE | 2020-12-18 13:57 | WPDGIPROGNO ---
Progress Note: A&P Assessment and Plan (1) Decompensated hepatic cirrhosis: Code(s): K72.90 - Hepatic failure, unspecified without coma; K74.60 - Unspecified cirrhosis of liver Status: Acute Assessment and Plan: HCV ab positive and most likely cause of cirrhosis liver enzymes stable we will send a referral to hepatology at [facility] after he leaves the hospital MRCP reviewed, only small ascites not enough for paracentesis, ultrasound cholelithiasis but he does not need surgery he can leave the hospital by GI standpoint (2) Hepatitis C virus infection: Code(s): B19.20 - Unspecified viral hepatitis C without hepatic coma Status: Acute Assessment and Plan: will need follow-up with hepatology as outpatient HBV and HIV negative get hcv rna and genotype (3) Cholelithiasis: Code(s): K80.20 - Calculus of gallbladder without cholecystitis without obstruction Status: Acute Assessment and Plan: no need of surgery, high risk anyways because cirrhosis MRCP reviewed, normal bile duct, pancreas with some edema- could be from generalized edema but also from intersticial pancreatitis (4) Upper abdominal pain: Code(s): R10.10 - Upper abdominal pain, unspecified Status: Acute (5) Thrombocytopenia: Code(s): D69.6 - Thrombocytopenia, unspecified Status: Acute Assessment and Plan: from cirrhosis (6) Acute gallstone pancreatitis: Code(s): K85.10 - Biliary acute pancreatitis without necrosis or infection Status: Acute (7) Elevated liver enzymes: Code(s): R74.8 - Abnormal levels of other serum enzymes Status: Acute (8) Esophageal varices determined by endoscopy: Code(s): I85.00 - Esophageal varices without bleeding Status: Acute Assessment and Plan: small size, no bleeding non-selective b-wilbur Subjective Date/time seen: 12/18/20 13:57 Interval history: no changes, mild epigastric pain but tolerated bagel for breakfast, he looks comfortable and is resting. egd yesterday with small EV and mild PHG Review of Systems Review of Systems: All systems reviewed & are unremarkable except as noted in HPI and below Exam Const: General: comfortable and no acute distress HENMT: General nose exam: Normal nares present Eyes: General: appearance normal, both eyes and all related structures Neck: Neck: no JVD Resp: Auscultation: clear to auscultation bilaterally Cardio: Rate: regular rate Rhythm: regular rhythm GI: Inspection: non-distended GI Palp: Yes Soft to palpation Skin: General skin exam: normal color Neuro: General: gait normal Speech: normal speech Extrem: General: normal to inspection Psych: Mental Status: mental status grossly normal Objective Data Vital Signs Vital Signs: Vital Signs - 24 hr 12/17/20 13:58 12/17/20 14:08 12/17/20 15:02 Temperature 98.2 F Pulse Rate 81 81 84 Respiratory Rate 20 20 18 Blood Pressure 113/72 124/77 114/89 Pulse Oximetry 97 98 93 12/17/20 20:00 12/17/20 20:18 12/18/20 04:38 Temperature 97.9 F 97.2 F L Pulse Rate 72 72 77 Respiratory Rate 17 17 16 Blood Pressure 108/61 128/80 Pulse Oximetry 95 95 92 12/18/20 08:00 12/18/20 09:15 Temperature Pulse Rate 67 Respiratory Rate Blood Pressure Pulse Oximetry 93 Intake/Output Intake/Output: Intake & Output 12/15/20 12/16/20 12/17/20 12/18/20 23:59 23:59 23:59 23:59 Intake Total 240 1360 730 790 Output Total 550 700 Balance -310 1360 30 790 Meds/Results Medications: Active Medications Generic Name Dose Route Start Last Admin Trade Name Freq PRN Reason Stop Dose Admin Acetaminophen 325 mg 12/15/20 02:35 12/17/20 18:07 Acetaminophen 325 Mg Tablet PO 325 mg Q6H PRN Administration fever or pain 1-3 Allopurinol 100 mg 12/15/20 08:00 12/18/20 09:15 Allopurinol 100 Mg Tablet PO 100 mg DAILY@0800 JESSICA Administration Aspirin 81 mg 12/15/20
--- NOTE | 2020-12-18 15:12 | PM.DS ---
DS: Admitting Diagnosis Discharge Date 12/18/20 Admitting Diagnosis Abdominal pain DS: Discharge Diagnosis Discharge Diagnosis (1) Gastritis: Code(s): K29.70 - Gastritis, unspecified, without bleeding Status: Acute (2) Hepatic cirrhosis: Code(s): K74.60 - Unspecified cirrhosis of liver Status: Acute DS: Summary Hospital Course Reason for hospitalization: Abdominal pain Hospital Course: 55-year-old male with hypertension type 2 diabetes, gout presenting with abdominal pain from correctional facility. Imaging consistent with some biliary sludge, however reviewed by General surgery Service, and believed less likely to be contributing to patient's acute symptoms. Furthermore, surgical intervention would require tertiary center given comorbidities. Underwent EGD with GI Service, found to have gastritis. Furthermore, imaging showing hepatic cirrhosis, which was previously unknown to the patient. Likely underlying etiology is hepatitis-C, pending RNA levels. Abdominal pain feeling better since starting Protonix as suggested by GI, and patient tolerating diet. Will continue this as an outpatient. Started propranolol to treat portal hypertension, as patient has newly diagnosed hepatic cirrhosis. Heart rate and blood pressure are tolerating this. Unlikely to benefit from surgery as deemed by surgery service,and if needed in the future will have to go to tertiary care center most likely. Will need close follow-up with hepatology for liver cirrhosis. Some concern for pancreatitis, however lipase only 314, and this was after the GI procedure; furthermore 2 better explanations for patient's symptoms, namely gastritis and decompensated liver cirrhosis. Discharging on Protonix for gastritis, and appropriate treatment for liver cirrhosis as recommended by GI. Outpatient follow-up at [facility] for hepatology. Discharge back to correctional facility. Status at Discharge Functional status at discharge: uses cane/walker Overall status at discharge: patient is progressing back to baseline Time Spent with Patient Time attestation: Total time spent providing and/or coordinating discharge services: Time spent: Less than 30 minutes Exam Const: General: no acute distress Neck: Neck: no JVD Resp: Effort & Inspection: normal respiratory effort Auscultation: clear to auscultation bilaterally Cardio: Rate: regular rate Rhythm: regular rhythm GI: GI Palp: Yes Soft to palpation and No Tenderness to palpation present (GI) DS: Data Data Completed and Pending Labs on day of discharge: Labs from last 24 hours 12/18/20 12/18/20 12/18/20 11:45 06:04 06:04 WBC 10.9 H RBC 3.55 L Hgb 12.3 L Hct 33.8 L MCV 95.2 MCH 34.6 H MCHC 36.4 H RDW 17.1 H Plt Count 96 L MPV 12.4 H Immature Gran % (Auto) 1.6 H Neut % (Auto) 50.8 Lymph % (Auto) 19.4 [place] % (Auto) 24.9 H Eos % (Auto) 2.9 Baso % (Auto) 0.4 Lymph # (Auto) 2.12 [place] # (Auto) 2.7 H Eos # (Auto) 0.3 Baso # (Auto) 0.0 Abs Immat Gran (auto) 0.17 H Absolute Neuts (auto) 5.6 Absolute Nucleated RBC 0.0 Nucleated RBC % 0.0 Atypical Lymphocytes Present Platelet Estimate Slightly decreased Large Platelets Present Sodium 129 L Potassium 3.4 Chloride 101 Carbon Dioxide 23 Anion Gap 5 L BUN 23 H Creatinine 0.80 Estim Creat Clear Calc 105 Estimated GFR > 60 Glucose 122 H POC Capillary Glucose 121 H Calcium 8.0 L Phosphorus 3.1 Magnesium 2.2 Total Bilirubin 5.2 H AST 116 H ALT 38 Alkaline Phosphatase 103 Total Protein 7.0 Albumin 2.5 L Lipase HCV RNA (PCR) IUs/ml HCV RNA PCR log IUs/ml 12/17/20 12/17/20 12/17/20 20:14 18:20 18:02 WBC RBC Hgb Hct MCV MCH MCHC RDW Plt Count MPV Immature Gran % (Auto) Neut % (Auto) Lymph % (Auto) [place] % (Auto) Eos
[2020-12-22 17:34] LABS: Hepatitis C Viral RNA PCR <15 IU/mL
== END 2020-12-18 15:50 | DRG 433 ==
PROVIDERS: Family Medicine; Internal Medicine; Internal Medicine Gastroenterology; Admitting Provider Internal Medicine; Visit Provider Internal Medicine
PROC: 0DJ08ZZ Inspection of Upper Intestinal Tract, Via Natural or Artificial Opening Endoscopic (ICD-10-PCS; CPT 43235; principal; 2020-12-17 15:00)
DX: K74.69 Other cirrhosis of liver (principal); I85.00 Esophageal varices without bleeding; J91.8 Pleural effusion in other conditions classified elsewhere; K76.6 Portal hypertension; K29.70 Gastritis, unspecified, without bleeding; K31.89 Other diseases of stomach and duodenum; B19.20 Unspecified viral hepatitis C without hepatic coma; K80.20 Calculus of gallbladder without cholecystitis without obstruction; K83.8 Other specified diseases of biliary tract; E11.9 Type 2 diabetes mellitus without complications; I10 Essential (primary) hypertension; M10.9 Gout, unspecified; D69.59 Other secondary thrombocytopenia; E66.9 Obesity, unspecified; Z68.33 Body mass index [BMI] 33.0-33.9, adult
CPT/HCPCS: 36415; 71046; 74183; 76376; 76700; 80048; 80053; 80061; 80074; 81001; 82565; 82948; 83605; 83690; 83735; 84100; 85025; 85610; 85730; 86703; 87040; 87522; A9270; A9577; G0432; J1815; J2001; J2270; J2405; J2704; J7120; J7121